=== PATIENT | female | born 1935 | race Caucasian/White ===

== ENCOUNTER 2021-12-05 21:26 | Inpatient (IN) ==
[2021-12-06] MEDS ORDERED: Acetaminophen 325 MG TABLET PO PRN (00:33)
[2021-12-06] MEDS ORDERED: Naloxone 0.4 MG/ML INJ IVP PRN (00:33)
[2021-12-06] MEDS ORDERED: Melatonin 3 MG TABLET PO PRN (00:33)
[2021-12-06] MEDS ORDERED: D5% in Water 1,000 ML IVC PRN (00:35)
[2021-12-06] MEDS ORDERED: *HR* Dextrose 50 % in Water (Syg) 50 ML SYRINGE IVP PRN (00:35)
[2021-12-06] MEDS ORDERED: Dextrose Gel 15 GM/37.5 ML TUBE PO PRN ×2 (00:35)
[2021-12-06] MEDS ORDERED: Perflutren Lipid Microsphere 1.3 ML in 0.9 % Sodium Chloride 8.7 ML IVP PRN (00:38)
[2021-12-06] MEDS ORDERED: *HR* Heparin 5,000 UNIT/ML VIAL IVP PRN ×2 (01:33)
[2021-12-06] MEDS ORDERED: Heparin 25,000UNIT/250ML 1/2NS 25,000 UNIT/250 ML IV.SOLN IVC SCH (01:45)
[2021-12-06 01:58] LABS: Alanine Aminotransferase 30 Units/L (7-52); Alkaline Phosphatase 43 Units/L (34-104); Aspartate Amino Transferase 66 Units/L (13-39); BUN/Creatinine Ratio 22 (6-26); Bilirubin,Total 0.8 mg/dL (0.3-1.0); Blood Urea Nitrogen 18 mg/dL (8-23); Calcium 8.1 mg/dL (8.6-10.3); Carbon Dioxide 26 mEq/L (23-29); Chloride 106 mEq/L (98-107); Chol/HDL Ratio 2.4 (0-4.9); Cholesterol 100 mg/dL (< 200); Glucose 115 mg/dL (70-105); HDL Cholesterol 42 mg/dL (40-59); LDL Cholesterol,Calculated 44 mg/dL (< 100); Magnesium 2.3 mg/dL (1.6-2.6); Osmolality,Calculated 283 (280-300); Phosphorous 2.8 mg/dL (2.7-4.5); Potassium 3.3 mEq/L (3.5-5.1); Sodium 135 mEq/L (136-145); Triglycerides 69 mg/dL (< 150); eGFR For African Americans > 60 (> 60); eGFR For Non-African Americans > 60 (> 60)
[2021-12-06] MEDS ORDERED: Saliva Stimulant 44.3ml BOTTLE PO PRN ×2 (02:11→02:38)
[2021-12-06 02:15] LABS: INR 2.2; Prothrombin Time 24.8 Seconds (9.4-12.1)
[2021-12-06 02:17] LABS: Heparin anti-factor XA UFH > 2.00 IU/mL (0.30-0.70)
[2021-12-06 02:23] LABS: Basophils % 0.2 %; Hematocrit 34.6 % (35.3-44.9); Hemoglobin 11.2 g/dL (11.5-15.4); Immature Granulocytes % 0.5 % (0-4); Lymphocytes # 1.5 K/mcL (0.6-4.6); Lymphocytes % 27.7 %; Mean Corpuscular HGB Conc 32.4 g/dL (31.6-35.5); Mean Corpuscular Hemoglobin 26.8 pg (28.0-33.3); Mean Corpuscular Volume 82.8 fL (83.0-100.0); Mean Platelet Volume 10.2 fL (9.4-12.4); Monocytes # 0.4 K/mcL (0.0-1.3); Monocytes % 6.4 %; Neutrophils # 3.6 K/mcL (1.6-8.9); Platelet Count 186 K/mcL (140-400); Red Blood Count 4.18 M/mcL (3.82-4.97); Red Cell Distribution Width 16.3 % (11.5-14.5); Segmented Neutrophils % 65.2 %; White Blood Count 5.5 K/mcL (4.3-11.1)
[2021-12-06] MEDS ORDERED: Isovue-370 500 ML BOTTLE IVP ONE (02:45)
[2021-12-06 02:48] LABS: Estimated Average Glucose 126 mg/dl
[2021-12-06] MEDS: Ipratropium 1 PUFF INHALER IH SCH ×4 (03:51→20:46)
[2021-12-06 03:52] LABS: % Iron Saturation 4 % (15-50); Iron 11 mcg/dL (50-170); Transferrin 199 mg/dL (203-362)
[2021-12-06 04:11] LABS: Ferritin 48 ng/mL (10-120)
[2021-12-06] MEDS ORDERED: Iron Sucrose Complex 400 MG in 0.9 % Sodium Chloride 250 ML IVPB ONE (05:30)
[2021-12-06] MEDS ORDERED: cefTRIAXone 1,000 MG in 0.9 % Sodium Chloride Mini Bag 100 ML IVPB SCH (09:00)
[2021-12-06] MEDS ORDERED: Chlorhexidine Rinse 15 ML MOUTHWASH MM SCH (09:00)
[2021-12-06] MEDS: Multivit/Ca/Min/Fe/FA 1 TAB TABLET PO SCH (09:07)
[2021-12-06] MEDS: Cholecalciferol (D-3) 1,000 UNIT (25MCG) TABLET PO SCH (09:09)
[2021-12-06] MEDS: carvediloL 6.25 MG TABLET PO SCH ×2 (09:09→16:17)
[2021-12-06] MEDS: Lactobacillus 1 EACH CAP.SPRINK PO SCH ×2 (09:09→22:16)
[2021-12-06] MEDS: Aspirin 81 MG TAB.CHEW PO SCH (09:09)
[2021-12-06] MEDS: Heparin 25,000UNIT/250ML 1/2NS 25,000 UNIT/250 ML IV.SOLN IVC SCH (11:58)
[2021-12-06 12:34] LABS: Bilirubin,Urine Negative (Negative); Blood,Urine Small (Negative); Clarity,Urine Clear (Clear); Color,Urine Yellow (Yellow); Glucose,Urine (UA) Normal (Normal); Ketones,Urine Negative (Negative); Leukocyte Esterase,Urine Moderate (Negative); Nitrite,Urine Positive (Negative); Protein,Urine 50 mg/dL (Neg-Trace); RBC,Urine 0-3 per hpf (0-3); Specific Gravity,Urine 1.026 (1.010-1.025); Squamous Epithelial Cell,Urine Few per hpf (None-Few); Urobilinogen,Urine Normal (Normal); WBC,Urine TNTC per hpf (0-3)
[2021-12-06] MEDS: Isosorbide MONOnitrate (24 HR) 30 MG TAB.ER.24H PO SCH (13:09)
[2021-12-06 13:46] LABS: Folate 19.7 ng/mL (3.0-16.0)
[2021-12-06] MEDS: Piperacillin/Tazobactam 3.375 GM in 0.9 % Sodium Chloride Mini Bag 100 ML IVPB SCH (16:13)
[2021-12-07] MEDS: Piperacillin/Tazobactam 3.375 GM in 0.9 % Sodium Chloride Mini Bag 100 ML IVPB SCH ×3 (01:32→15:51)
[2021-12-07] MEDS: Ipratropium 1 PUFF INHALER IH SCH ×4 (03:11→19:43)
[2021-12-07 06:38] LABS: Basophils % 0.2 %; Hematocrit 31.5 % (35.3-44.9); Hemoglobin 10.4 g/dL (11.5-15.4); Immature Granulocytes % 0.5 % (0-4); Lymphocytes # 1.1 K/mcL (0.6-4.6); Lymphocytes % 18.9 %; Mean Corpuscular Hemoglobin 26.9 pg (28.0-33.3); Mean Corpuscular Volume 81.6 fL (83.0-100.0); Mean Platelet Volume 10.5 fL (9.4-12.4); Monocytes # 0.3 K/mcL (0.0-1.3); Neutrophils # 4.4 K/mcL (1.6-8.9); Platelet Count 211 K/mcL (140-400); Red Blood Count 3.86 M/mcL (3.82-4.97); Red Cell Distribution Width 16.2 % (11.5-14.5); Segmented Neutrophils % 75.4 %; White Blood Count 5.8 K/mcL (4.3-11.1)
[2021-12-07 06:56] LABS: Alanine Aminotransferase 25 Units/L (7-52); Albumin 2.8 g/dL (3.5-5.7); Alkaline Phosphatase 43 Units/L (34-104); Aspartate Amino Transferase 61 Units/L (13-39); BUN/Creatinine Ratio 18 (6-26); Bilirubin,Total 0.8 mg/dL (0.3-1.0); Blood Urea Nitrogen 15 mg/dL (8-23); Calcium 7.9 mg/dL (8.6-10.3); Carbon Dioxide 25 mEq/L (23-29); Chloride 106 mEq/L (98-107); Globulin 2.9 g/dL (2.4-3.5); Glucose 88 mg/dL (70-105); Osmolality,Calculated 288 (280-300); Sodium 139 mEq/L (136-145); Total Protein 5.7 g/dL (6.4-8.9); eGFR For African Americans > 60 (> 60); eGFR For Non-African Americans > 60 (> 60)
[2021-12-07] MEDS: Furosemide 20 MG TABLET PO SCH (09:36)
[2021-12-07] MEDS: Lactobacillus 1 EACH CAP.SPRINK PO SCH ×2 (09:36→20:46)
[2021-12-07] MEDS: carvediloL 6.25 MG TABLET PO SCH ×2 (09:36→15:50)
[2021-12-07] MEDS: Multivit/Ca/Min/Fe/FA 1 TAB TABLET PO SCH (09:37)
[2021-12-07] MEDS: Cholecalciferol (D-3) 1,000 UNIT (25MCG) TABLET PO SCH (09:37)
[2021-12-07] MEDS: Isosorbide MONOnitrate (24 HR) 30 MG TAB.ER.24H PO SCH (09:37)
[2021-12-07] MEDS: Aspirin 81 MG TAB.CHEW PO SCH (09:37)
[2021-12-07] MEDS ORDERED: Perflutren Lipid Microsphere 1.3 ML in 0.9 % Sodium Chloride 8.7 ML IVP PRN (16:33)
[2021-12-08] MEDS: Piperacillin/Tazobactam 3.375 GM in 0.9 % Sodium Chloride Mini Bag 100 ML IVPB SCH ×3 (00:03→15:09)
[2021-12-08] MEDS: Ipratropium 1 PUFF INHALER IH SCH ×4 (03:44→20:06)
[2021-12-08 05:51] LABS: Basophils % 0.1 %; Hemoglobin 10.9 g/dL (11.5-15.4); Immature Granulocytes % 0.7 % (0-4); Lymphocytes # 1.3 K/mcL (0.6-4.6); Lymphocytes % 15.2 %; Mean Corpuscular Hemoglobin 26.8 pg (28.0-33.3); Mean Corpuscular Volume 81.3 fL (83.0-100.0); Mean Platelet Volume 10.4 fL (9.4-12.4); Monocytes # 0.3 K/mcL (0.0-1.3); Monocytes % 3.4 %; Neutrophils # 6.9 K/mcL (1.6-8.9); Platelet Count 267 K/mcL (140-400); Red Blood Count 4.06 M/mcL (3.82-4.97); Segmented Neutrophils % 80.6 %; White Blood Count 8.6 K/mcL (4.3-11.1)
[2021-12-08 06:00] LABS: Activated Partial Thrombo Time 57.7 Seconds (26.0-36.0)
[2021-12-08 06:12] LABS: Alanine Aminotransferase 35 Units/L (7-52); Alkaline Phosphatase 47 Units/L (34-104); Aspartate Amino Transferase 95 Units/L (13-39); BUN/Creatinine Ratio 17 (6-26); Bilirubin,Total 1.1 mg/dL (0.3-1.0); Blood Urea Nitrogen 14 mg/dL (8-23); Carbon Dioxide 23 mEq/L (23-29); Chloride 104 mEq/L (98-107); Globulin 3.1 g/dL (2.4-3.5); Glucose 96 mg/dL (70-105); Osmolality,Calculated 280 (280-300); Potassium 3.6 mEq/L (3.5-5.1); Sodium 135 mEq/L (136-145); Total Protein 6.1 g/dL (6.4-8.9); eGFR For African Americans > 60 (> 60); eGFR For Non-African Americans > 60 (> 60)
[2021-12-08] MEDS: Cholecalciferol (D-3) 1,000 UNIT (25MCG) TABLET PO SCH (09:02)
[2021-12-08] MEDS: Lactobacillus 1 EACH CAP.SPRINK PO SCH ×2 (09:03→21:24)
[2021-12-08] MEDS: Furosemide 20 MG TABLET PO SCH (09:03)
[2021-12-08] MEDS: Aspirin 81 MG TAB.CHEW PO SCH (09:03)
[2021-12-08] MEDS: carvediloL 6.25 MG TABLET PO SCH ×2 (09:04→17:03)
[2021-12-08] MEDS: Multivit/Ca/Min/Fe/FA 1 TAB TABLET PO SCH (09:04)
[2021-12-08] MEDS: Isosorbide MONOnitrate (24 HR) 30 MG TAB.ER.24H PO SCH (09:04)
[2021-12-08] MEDS: Heparin 25,000UNIT/250ML 1/2NS 25,000 UNIT/250 ML IV.SOLN IVC SCH (21:36)
[2021-12-09] MEDS: Piperacillin/Tazobactam 3.375 GM in 0.9 % Sodium Chloride Mini Bag 100 ML IVPB SCH ×4 (00:18→23:09)
[2021-12-09] MEDS: Ipratropium 1 PUFF INHALER IH SCH ×4 (03:37→21:40)
[2021-12-09] MEDS: Heparin 25,000UNIT/250ML 1/2NS 25,000 UNIT/250 ML IV.SOLN IVC SCH (05:19)
[2021-12-09 05:50] LABS: Basophils % 0.2 %; Hematocrit 29.9 % (35.3-44.9); Hemoglobin 9.6 g/dL (11.5-15.4); Lymphocytes # 1.2 K/mcL (0.6-4.6); Lymphocytes % 19.1 %; Mean Corpuscular HGB Conc 32.1 g/dL (31.6-35.5); Monocytes # 0.4 K/mcL (0.0-1.3); Monocytes % 5.7 %; Neutrophils # 4.6 K/mcL (1.6-8.9); Platelet Count 258 K/mcL (140-400); Red Blood Count 3.69 M/mcL (3.82-4.97); Red Cell Distribution Width 16.1 % (11.5-14.5); White Blood Count 6.2 K/mcL (4.3-11.1)
[2021-12-09 06:18] LABS: Alanine Aminotransferase 49 Units/L (7-52); Albumin 2.7 g/dL (3.5-5.7); Albumin/Globulin Ratio 0.9 (1.1-2.2); Alkaline Phosphatase 42 Units/L (34-104); Aspartate Amino Transferase 111 Units/L (13-39); BUN/Creatinine Ratio 14 (6-26); Blood Urea Nitrogen 12 mg/dL (8-23); Calcium 7.9 mg/dL (8.6-10.3); Carbon Dioxide 24 mEq/L (23-29); Chloride 107 mEq/L (98-107); Glucose 96 mg/dL (70-105); Osmolality,Calculated 284 (280-300); Potassium 3.5 mEq/L (3.5-5.1); Sodium 137 mEq/L (136-145); Total Protein 5.7 g/dL (6.4-8.9); eGFR For African Americans > 60 (> 60); eGFR For Non-African Americans > 60 (> 60)
[2021-12-09] MEDS: Lactobacillus 1 EACH CAP.SPRINK PO SCH ×2 (09:45→19:59)
[2021-12-09] MEDS: Isosorbide MONOnitrate (24 HR) 30 MG TAB.ER.24H PO SCH (09:45)
[2021-12-09] MEDS: Cholecalciferol (D-3) 1,000 UNIT (25MCG) TABLET PO SCH (09:46)
[2021-12-09] MEDS: Aspirin 81 MG TAB.CHEW PO SCH (09:46)
[2021-12-09] MEDS: Multivit/Ca/Min/Fe/FA 1 TAB TABLET PO SCH (09:46)
[2021-12-09] MEDS: Furosemide 20 MG TABLET PO SCH (09:47)
[2021-12-09] MEDS: carvediloL 6.25 MG TABLET PO SCH ×2 (09:57→16:17)
[2021-12-09] MEDS: Apixaban 5 MG TABLET PO SCH (20:00)
[2021-12-10 02:51] LABS: Basophils % 0.2 %; Eosinophils % 0.4 %; Hematocrit 29.7 % (35.3-44.9); Hemoglobin 9.5 g/dL (11.5-15.4); Immature Granulocytes % 0.8 % (0-4); Lymphocytes # 1.1 K/mcL (0.6-4.6); Lymphocytes % 21.8 %; Mean Corpuscular Hemoglobin 26.3 pg (28.0-33.3); Mean Corpuscular Volume 82.3 fL (83.0-100.0); Mean Platelet Volume 9.4 fL (9.4-12.4); Monocytes # 0.3 K/mcL (0.0-1.3); Monocytes % 5.4 %; Neutrophils # 3.4 K/mcL (1.6-8.9); Nucleated Red Blood Cells 0.4 /100 WBC (0); Platelet Count 264 K/mcL (140-400); Red Blood Count 3.61 M/mcL (3.82-4.97); Red Cell Distribution Width 16.2 % (11.5-14.5); Segmented Neutrophils % 71.4 %; White Blood Count 4.8 K/mcL (4.3-11.1)
[2021-12-10 03:04] LABS: Alanine Aminotransferase 67 Units/L (7-52); Albumin 2.6 g/dL (3.5-5.7); Albumin/Globulin Ratio 0.8 (1.1-2.2); Alkaline Phosphatase 44 Units/L (34-104); Aspartate Amino Transferase 126 Units/L (13-39); BUN/Creatinine Ratio 15 (6-26); Bilirubin,Total 0.8 mg/dL (0.3-1.0); Blood Urea Nitrogen 12 mg/dL (8-23); Calcium 7.7 mg/dL (8.6-10.3); Carbon Dioxide 23 mEq/L (23-29); Chloride 109 mEq/L (98-107); Globulin 3.2 g/dL (2.4-3.5); Glucose 84 mg/dL (70-105); Osmolality,Calculated 283 (280-300); Potassium 3.4 mEq/L (3.5-5.1); Sodium 137 mEq/L (136-145); Total Protein 5.8 g/dL (6.4-8.9); eGFR For African Americans > 60 (> 60); eGFR For Non-African Americans > 60 (> 60)
[2021-12-10] MEDS: Ipratropium 1 PUFF INHALER IH SCH ×4 (03:23→20:09)
[2021-12-10] MEDS: Piperacillin/Tazobactam 3.375 GM in 0.9 % Sodium Chloride Mini Bag 100 ML IVPB SCH ×2 (08:29→16:22)
[2021-12-10] MEDS: Cholecalciferol (D-3) 1,000 UNIT (25MCG) TABLET PO SCH (08:30)
[2021-12-10] MEDS: Lactobacillus 1 EACH CAP.SPRINK PO SCH ×2 (08:30→21:44)
[2021-12-10] MEDS: Isosorbide MONOnitrate (24 HR) 30 MG TAB.ER.24H PO SCH (08:30)
[2021-12-10] MEDS: Furosemide 20 MG TABLET PO SCH (08:30)
[2021-12-10] MEDS: Multivit/Ca/Min/Fe/FA 1 TAB TABLET PO SCH (08:30)
[2021-12-10] MEDS: Apixaban 5 MG TABLET PO SCH ×2 (08:31→21:43)
[2021-12-10] MEDS: carvediloL 6.25 MG TABLET PO SCH ×2 (08:31→16:23)
[2021-12-11] MEDS: Piperacillin/Tazobactam 3.375 GM in 0.9 % Sodium Chloride Mini Bag 100 ML IVPB SCH ×3 (03:13→16:30)
[2021-12-11] MEDS: Ipratropium 1 PUFF INHALER IH SCH ×4 (03:37→20:06)
[2021-12-11] MEDS: Cholecalciferol (D-3) 1,000 UNIT (25MCG) TABLET PO SCH (09:10)
[2021-12-11] MEDS: Apixaban 5 MG TABLET PO SCH ×2 (09:11→21:17)
[2021-12-11] MEDS: Furosemide 20 MG TABLET PO SCH (09:11)
[2021-12-11] MEDS: Multivit/Ca/Min/Fe/FA 1 TAB TABLET PO SCH (09:11)
[2021-12-11] MEDS: Isosorbide MONOnitrate (24 HR) 30 MG TAB.ER.24H PO SCH (09:11)
[2021-12-11] MEDS: carvediloL 6.25 MG TABLET PO SCH ×2 (09:11→16:29)
[2021-12-11] MEDS: Lactobacillus 1 EACH CAP.SPRINK PO SCH ×2 (09:11→21:17)
[2021-12-12] MEDS: Piperacillin/Tazobactam 3.375 GM in 0.9 % Sodium Chloride Mini Bag 100 ML IVPB SCH ×3 (01:13→16:28)
[2021-12-12] MEDS: Ipratropium 1 PUFF INHALER IH SCH ×3 (04:07→15:46)
[2021-12-12 07:50] VITALS: BP 158/77; PULSE 90; TEMP 98.1; O2SAT 95
[2021-12-12 07:59] LABS: Hematocrit 35.3 % (35.3-44.9); Mean Corpuscular Hemoglobin 26.9 pg (28.0-33.3); Mean Platelet Volume 9.5 fL (9.4-12.4); Platelet Count 466 K/mcL (140-400); Red Cell Distribution Width 17.9 % (11.5-14.5); White Blood Count 6.3 K/mcL (4.3-11.1)
[2021-12-12 08:12] LABS: BUN/Creatinine Ratio 14 (6-26); Blood Urea Nitrogen 10 mg/dL (8-23); Calcium 8.6 mg/dL (8.6-10.3); Carbon Dioxide 24 mEq/L (23-29); Chloride 105 mEq/L (98-107); Glucose 84 mg/dL (70-105); Osmolality,Calculated 286 (280-300); Potassium 3.6 mEq/L (3.5-5.1); Sodium 139 mEq/L (136-145); eGFR For African Americans > 60 (> 60); eGFR For Non-African Americans > 60 (> 60)
[2021-12-12] MEDS: Isosorbide MONOnitrate (24 HR) 30 MG TAB.ER.24H PO SCH (08:16)
[2021-12-12] MEDS: carvediloL 6.25 MG TABLET PO SCH (08:17)
[2021-12-12] MEDS: Multivit/Ca/Min/Fe/FA 1 TAB TABLET PO SCH (08:17)
[2021-12-12] MEDS: Furosemide 20 MG TABLET PO SCH (08:17)
[2021-12-12] MEDS: Cholecalciferol (D-3) 1,000 UNIT (25MCG) TABLET PO SCH (08:17)
[2021-12-12] MEDS: Apixaban 5 MG TABLET PO SCH (08:17)
[2021-12-12] MEDS: Lactobacillus 1 EACH CAP.SPRINK PO SCH (08:17)
[2021-12-12 08:28] LABS: Hemoglobin 11.3 g/dL (11.5-15.4)
== END 2021-12-12 17:26 | DRG 280 ==
LOC: 2ANU → SUATTDRO 12-06 00:06 → OBSVTOIN 12-06 00:06
PROVIDERS: ADMIT Internal Medicine; ATTEND Family Medicine